=== PATIENT | male | born 1950 | race Asian ===

== ENCOUNTER 2020-07-12 18:24 | Emergency (ER) | payer MEDICARE, OTHER ==
[2020-07-12 19:48] VITALS: BP 122/85
[2020-07-12] MEDS ORDERED: KETOROLAC 30 MG/1 ML INJ IM ONE (20:20)
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
[2020-07-12 21:15] LABS: Bilirubin,Urine NEG (Negative); Blood,Urine NEG (Negative); Color,Urine Yellow (Yellow); Mucus,Urine FEW /HPF; Protein,Urine <15 mg/dL mg/dL (Negative); RBC,Urine < 1.0 /HPF (0.0-6.0); Urobilinogen,Urine < 2.0 mg/dL (<2.0)
== END 2020-07-12 22:45 | disposition home or self-care (01) ==
LOC: ED 18:24
DX: N39.0 Urinary tract infection, site not specified (principal); Z98.890 Other specified postprocedural states; Z79.899 Other long term (current) drug therapy
CPT/HCPCS: 51702; 81001; 87086; 96372; 99283; J1885

== ENCOUNTER 2020-08-19 19:53 | Emergency (ER) | payer MEDICARE ==
[2020-08-19 22:08] LABS: Bacteria,Urine 1+ /HPF (Negative); Bilirubin,Urine NEG (Negative); Blood,Urine LG (Negative); Color,Urine Straw (Yellow); Mucus,Urine FEW /HPF; Urobilinogen,Urine < 2.0 mg/dL (<2.0)
[2020-08-19] MEDS ORDERED: HYDROcodone/ACETAMINOPHEN 5-325 MG TAB PO ONE (22:28)
[2020-08-19] MEDS ORDERED: ONDANSETRON 4 MG ODT TAB PO ONE (22:28)
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
[2020-08-19 23:02] LABS: Basophils % (Auto) 0.3 % (0.0-1.8); Eosinophils # (Auto) 0.3 K/mm3 (0.0-0.4); Eosinophils % (Auto) 4.1 % (0.0-4.3); Hematocrit 43.6 % (35.5-45.6); Hemoglobin 14.5 gm/dl (11.8-15.2); Lymphocytes # (Auto) 0.4 K/mm3 (1.2-5.4); Lymphocytes % (Auto) 6.2 % (13.4-35.0); Mean Corpuscular HGB Conc 33 % (32-34); Mean Corpuscular Volume 92 fl (84-94); Monocytes # (Auto) 0.4 K/mm3 (0.0-0.8); Monocytes % (Auto) 6.1 % (0.0-7.3); Platelet Count 199 K/mm3 (140-440); Red Blood Count 4.72 M/mm3 (3.65-5.03); Red Cell Distribution Width 15.6 % (13.2-15.2)
[2020-08-19 23:13] LABS: INR 1.03 (0.87-1.13)
[2020-08-19 23:14] LABS: Partial Thromboplastin Time 30.4 Sec. (24.2-36.6)
[2020-08-19 23:23] LABS: Alanine Aminotransferase 21 units/L (7-56); Albumin 4.2 g/dL (3.9-5); BUN/Creatinine Ratio 9; Blood Urea Nitrogen 7 mg/dL (9-20); Calcium 9.1 mg/dL (8.4-10.2); Hemolysis Index 19
[2020-08-20] MEDS ORDERED: cephALEXin 500 MG CAP PO ONE (00:09)
[2020-08-20 06:16] VITALS: BP 101/75
== END 2020-08-20 09:55 | disposition home or self-care (01) ==
LOC: ED 19:53
DX: R30.0 Dysuria (principal); E78.00 Pure hypercholesterolemia, unspecified; Z79.899 Other long term (current) drug therapy; Z98.890 Other specified postprocedural states
CPT/HCPCS: 36415; 80053; 81001; 85025; 85610; 85730; Q0162

== ENCOUNTER 2020-09-21 15:23 | Emergency (ER) | payer MEDICARE ==
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
[2020-09-21 17:16] LABS: Bacteria,Urine 1+ /HPF (Negative); Bilirubin,Urine NEG (Negative); Blood,Urine LG (Negative); Color,Urine Amber (Yellow); Hyaline Casts,Urine 1 /LPF
[2020-09-21 17:40] VITALS: BP 102/72
== END 2020-09-21 22:30 | disposition home or self-care (01) ==
LOC: ED 15:23
DX: T83.021A Displacement of indwelling urethral catheter, initial encounter (principal); N39.0 Urinary tract infection, site not specified; Z79.899 Other long term (current) drug therapy; Z98.890 Other specified postprocedural states; Y92.89 Other specified places as the place of occurrence of the external cause
CPT/HCPCS: 51702; 81001; 87086

== ENCOUNTER 2020-10-31 12:22 | Emergency (ER) | payer MEDICARE ==
--- NOTE | 2020-10-31 15:03 | Event Note ---
ED Screening Note ED Screening Note: Patient is a 70-year-old male presents emergency room complaints of left-sided shoulder pain that began last night He states he has not been able to sleep secondary to the pain He denies any fall or injury He states he was leaning on that arm yesterday for a long period of time Patient has a history of bone cancer and states that he had a spine surgery in May 2020 at [facility] and underwent radiation therapy He reports that he also needs a new bag for his De Luna catheter and states that he has urinary retention secondary to an enlarged prostate per patient This initial assessment/diagnostic orders/clinical plan/treatment(s) is/are subject to change based on patients health status, clinical progression and re- assessment by fellow clinical providers in the ED. Further treatment and workup at subsequent clinical providers discretion. Patient/guardian urged not to elope from the ED as their condition may be serious if not clinically assessed and managed. Initial orders include: labs, xr, ekg
--- NOTE | 2020-10-31 15:54 | XRay Report ---
CHEST 1 VIEW 10/31/2020 3:19 PM INDICATION / CLINICAL INFORMATION: non traumatic left shoulder pain, hx of bone CA. COMPARISON: None available. FINDINGS: SUPPORT DEVICES: None. HEART / MEDIASTINUM: No significant abnormality. LUNGS / PLEURA: No significant pulmonary or pleural abnormality. No pneumothorax. ADDITIONAL FINDINGS: Posterior upper thoracic spine fusion hardware without acute abnormality. No acu te osseous abnormality. IMPRESSION: 1. No acute findings. Signer Name: Marleny Mckeon MD Signed: 10/31/2020 3:49 PM Workstation Name: [id number]
--- NOTE | 2020-10-31 15:54 | XRay Report ---
LEFT SHOULDER 3 VIEW(S) INDICATION / CLINICAL INFORMATION: left shoulder pain, hx of bone cancer. COMPARISON: None available. FINDINGS: BONES / JOINT(S): No acute fracture or subluxation. Mild AC joint degenerative arthrosis. No osseous lesion. SOFT TISSUES: No significant abnormality. ADDITIONAL FINDINGS: None. Signer Name: Marleny Mckeon MD Signed: 10/31/2020 3:50 PM Workstation Name: [employer][id number]
[2020-10-31] MEDS ORDERED: HYDROmorphone 1 MG/1 ML INJ IV ONE (15:57)
[2020-10-31] MEDS ORDERED: KETOROLAC 30 MG/1 ML INJ IV ONE (15:57)
[2020-10-31 16:52] LABS: Hemolysis Index 1
[2020-10-31 16:55] LABS: Basophils # (Auto) 0.1 K/mm3 (0.0-0.1); Basophils % (Auto) 0.8 % (0.0-1.8); Eosinophils # (Auto) 0.2 K/mm3 (0.0-0.4); Eosinophils % (Auto) 2.3 % (0.0-4.3); Hematocrit 40.5 % (35.5-45.6); Hemoglobin 13.8 gm/dl (11.8-15.2); Lymphocytes # (Auto) 0.6 K/mm3 (1.2-5.4); Lymphocytes % (Auto) 7.2 % (13.4-35.0); Mean Corpuscular HGB Conc 34 % (32-34); Mean Corpuscular Volume 91 fl (84-94); Monocytes # (Auto) 0.4 K/mm3 (0.0-0.8); Monocytes % (Auto) 5.3 % (0.0-7.3); Platelet Count 206 K/mm3 (140-440); Red Blood Count 4.46 M/mm3 (3.65-5.03); Red Cell Distribution Width 18.8 % (13.2-15.2)
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
[2020-10-31 17:17] LABS: Alanine Aminotransferase TNR units/L (7-56); Albumin TNR g/dL (3.9-5); BUN/Creatinine Ratio TNR; Blood Urea Nitrogen TNR mg/dL (9-20); Calcium TNR mg/dL (8.4-10.2)
[2020-10-31 17:19] LABS: INR 1.05 (0.87-1.13)
[2020-10-31 17:42] LABS: Erythrocyte Sedimentation Rate 45 mm/Hr (0-20)
[2020-10-31 18:51] LABS: Alanine Aminotransferase 11 units/L (7-56); Albumin 4.2 g/dL (3.9-5); BUN/Creatinine Ratio 11; Blood Urea Nitrogen 10 mg/dL (9-20); Calcium 9.5 mg/dL (8.4-10.2); Hemolysis Index 18
[2020-10-31 18:52] VITALS: BP 105/72
[2020-10-31] MEDS ORDERED: oxyCODONE /ACETAMINOPHEN 5-325MG TAB PO PRN (18:54)
[2020-10-31] MEDS ORDERED: oxyCODONE /ACETAMINOPHEN 5-325MG TAB PO STA (19:05)
--- NOTE | 2020-11-01 11:40 | Electrocardiograph Report ---
[facility] Test Date: 2020-10-31 Test Time: 15:44:16 Pat Name: KETURAH MARAVILLA Department: Room: Gender: M Patient Carrier: RODY : 1950 Requested By: SHARIF SAAVEDRA Order Number: [id number] Reading MD: Madhav Griffith Measurements Intervals [place] Rate: 106 P: 48 [place]: 166 QRS: -22 QRSD: 92 T: QT: 314 QTc: 417 Interpretive Statements Sinus tachycardia Nonspecific T abnrm, anterolateral leads No previous ECG available for comparison Electronically Signed On 11-01-2020 11:40:23 EDT by Madhav Griffith
== END 2020-10-31 19:50 | disposition home or self-care (01) ==
LOC: ED 12:22
DX: M25.512 Pain in left shoulder (principal); Z46.6 Encounter for fitting and adjustment of urinary device; N40.0 Benign prostatic hyperplasia without lower urinary tract symptoms; E78.00 Pure hypercholesterolemia, unspecified; Z98.890 Other specified postprocedural states
CPT/HCPCS: 36415; 71045; 73030; 80053; 82550; 84484; 85025; 85610; 85652; 86140; 93005; 96374; 96375; 99284; J1170; J1885